=== PATIENT | male | born 2000 | race Caucasian/White ===

== ENCOUNTER 2023-02-01 19:44 | Emergency (ER) | payer OTHER ==
[~2023-02-01] VITALS: Ht 162.6 cm; Wt 61.2 kg
== END 2023-02-01 21:41 | disposition home or self-care (01) ==
LOC: ER 19:44
DX: S93.401A Sprain of unspecified ligament of right ankle, initial encounter (principal); V19.9XXA Pedal cyclist (driver) (passenger) injured in unspecified traffic accident, initial encounter; Y93.9 Activity, unspecified; Y92.9 Unspecified place or not applicable; Y99.9 Unspecified external cause status

== ENCOUNTER 2023-05-07 23:24 | Emergency (ER) | payer OTHER ==
[~2023-05-07] VITALS: Ht 162.6 cm; Wt 61.7 kg
[2023-05-08] MEDS ORDERED: KETO10TA2 PO (05:44)
[2023-05-08] MEDS ORDERED: CEPHALEXIN500 MG PO (05:44)
== END 2023-05-08 06:04 | disposition home or self-care (01) ==
LOC: ER 23:24
DX: R10.2 Pelvic and perineal pain (principal); N50.819 Testicular pain, unspecified

== ENCOUNTER 2023-09-05 19:28 | Emergency (ER) | payer OTHER ==
[~2023-09-05] VITALS: Ht 167.6 cm; Wt 61.2 kg
[~2023-09-05 19:28] MED LIST: CEPHALEXIN500 MG PO; KETO10TA2 PO
[2023-09-05 21:23] LABS: HEMATOCRIT 46.2 % (39.0-48.0); HEMOGLOBIN 15.6 g/dL (13-16.00); MEAN CELL VOLUME 88.5 fL (80.0-100.00); MEAN CORPUSCULAR HEMOGLOBIN 29.8 pg (27.00-32.0); MEAN CORPUSCULAR HGB CONC 33.7 g/dl (32.0-36.0); PLATELET COUNT 282 K/uL (150-450); RED BLOOD COUNT 5.23 M/uL (4.00-6.00); RED CELL DISTRIBUTION WIDTH 13.2 % (11.5-14.5)
[2023-09-05 21:51] LABS: CALCIUM 9.4 mg/dL (8.5-10.1); CREATININE SERUM 1.17 mg/dL (0.70-1.30); GFR 76.59; POTASSIUM 3.37 mEq/L (3.5-5.1)
== END 2023-09-05 22:11 | disposition home or self-care (01) ==
LOC: ER 19:28
PROVIDERS: General Practice
DX: M94.0 Chondrocostal junction syndrome [Tietze] (principal); Z20.822 Contact with and (suspected) exposure to COVID-19; R07.89 Other chest pain

== ENCOUNTER 2023-10-18 10:50 | Emergency (ER) | payer OTHER ==
[~2023-10-18] VITALS: Ht 162.6 cm; Wt 62.1 kg
[2023-10-18 11:29] LABS: HEMOGLOBIN 15.3 g/dL (13-16.00); MEAN CELL VOLUME 85.6 fL (80.0-100.00); MEAN CORPUSCULAR HEMOGLOBIN 30.4 pg (27.00-32.0); MEAN CORPUSCULAR HGB CONC 35.5 g/dl (32.0-36.0); PLATELET COUNT 382 K/uL (150-450); RED BLOOD COUNT 5.02 M/uL (4.00-6.00); RED CELL DISTRIBUTION WIDTH 12.9 % (11.5-14.5)
== END 2023-10-18 13:40 | disposition home or self-care (01) ==
LOC: ER 10:50
PROVIDERS: General Practice
DX: J06.9 Acute upper respiratory infection, unspecified (principal); Z20.822 Contact with and (suspected) exposure to COVID-19

== ENCOUNTER 2024-02-22 17:11 | Emergency (ER) | payer OTHER ==
[~2024-02-22] VITALS: Ht 165.1 cm; Wt 63.5 kg
[2024-02-22] MEDS ORDERED: KETOROLAC TROMETHAMINE 60 MG VIAL IM ONE (23:15)
[2024-02-22 23:49] LABS: HEMOGLOBIN 15.2 g/dL (13-16.00); MEAN CORPUSCULAR HGB CONC 34.5 g/dl (32.0-36.0); PLATELET COUNT 325 K/uL (150-450); RED BLOOD COUNT 5.06 M/uL (4.00-6.00); RED CELL DISTRIBUTION WIDTH 13.4 % (11.5-14.5)
[2024-02-23 00:18] LABS: PH,URINE 6.5 (5.0-8.0); URINE APPEARANCE Clear; URINE BILIRRUBIN Negative (NEGATIVE); URINE BLOOD Negative; URINE COLOR Yellow; URINE GLUCOSE Negative (NEGATIVE); URINE LEUKOCYTE Negative; URINE NITRATE Negative; URINE PROTEIN Negative (NEGATIVE)
[2024-02-23 00:21] LABS: URINE BACTERIA 60.4 uL (0.0-1933); URINE RBC 2.8 uL (0.0-20.8); URINE WBC 3.3 uL (0.0-23.2)
[2024-02-23 00:24] LABS: URINE EPITHELIAL CELLS 0.9 uL (0.0-38.8)
[2024-02-23 01:35] LABS: ALBUMIN 4.7 gm/dL (3.4-5.0); BILIRUBIN TOTAL 0.37 mg/dL (0.3-1.2); CALCIUM 9.5 mg/dL (8.5-10.1); CREATININE SERUM 0.88 mg/dL (0.70-1.30); GLOBULINA 3.5 G/DL (2.4-3.5); POTASSIUM 3.97 mEq/L (3.5-5.1); TOTAL PROTEIN 8.2 gm/dL (6.4-8.2)
[2024-02-23 01:55] LABS: GFR 105.51
== END 2024-02-23 02:57 | disposition home or self-care (01) ==
LOC: ER 17:11
PROVIDERS: Emergency Medicine
DX: N50.812 Left testicular pain (principal); I86.1 Scrotal varices

== ENCOUNTER 2024-07-05 15:02 | Emergency (ER) | payer OTHER ==
[~2024-07-05] VITALS: Ht 162.6 cm; Wt 61.2 kg
[2024-07-05 17:58] LABS: HEMATOCRIT 42.1 % (39.0-48.0); HEMOGLOBIN 14.9 g/dL (13-16.00); MEAN CELL VOLUME 86.6 fL (80.0-100.00); MEAN CORPUSCULAR HEMOGLOBIN 30.7 pg (27.00-32.0); MEAN CORPUSCULAR HGB CONC 35.4 g/dl (32.0-36.0); PLATELET COUNT 250 K/uL (150-450); RED BLOOD COUNT 4.86 M/uL (4.00-6.00); RED CELL DISTRIBUTION WIDTH 13.1 % (11.5-14.5)
[2024-07-05 18:22] LABS: ALBUMIN 3.9 gm/dL (3.4-5.0); BILIRUBIN TOTAL 0.38 mg/dL (0.3-1.2); CALCIUM 9.1 mg/dL (8.5-10.1); GFR 91.04; GLOBULINA 3.5 G/DL (2.4-3.5); POTASSIUM 4.07 mEq/L (3.5-5.1); TOTAL PROTEIN 7.4 gm/dL (6.4-8.2)
[2024-07-05] MEDS ORDERED: ABATINEX680 MG PO (22:01)
[2024-07-05] MEDS ORDERED: METRONIDAZOLE500 MG PO (22:01)
[2024-07-05] MEDS ORDERED: DICY20TA PO (22:01)
== END 2024-07-05 22:10 | disposition home or self-care (01) ==
LOC: ER 15:02
PROVIDERS: General Practice
DX: R19.7 Diarrhea, unspecified (principal); R10.13 Epigastric pain